=== PATIENT | male | born 1940 | race Caucasian/White ===

== ENCOUNTER → 2016-11-12 | Outpatient (CLI) | payer MEDICARE, BC ==
[~2016-11-12] MED LIST: COMBIVENT U/D3 ML; PRILOSEC20 MG; PULMICORT0.25 MG/2; SINGULAIR PO; THEO-DUR300 MG PO; ZANTAC150 MG
--- NOTE | ~2016-11-12 | CT57 ---
[facility]. [facility] A Service of [facility] RADIOLOGY TEXT RESULTS PATIENT: MOODY PRICE LOCATION: [facility] : 40 UNIT #: [id number] AGE: [address]: Brandan Belcher MD SEX: M ORDER DR: [id number] [address] [address] [id number] O MR#: [id number] Acc #: [id number] NAME: MOODY PRICE : 1940 SEX: M STUDY DATE/TIME: 11/12/2016 13:25 UNIT: SCT ROOM: STUDY DESCRIPTION: CT Chest Wo Cont Attending Physician: Brandan Belcher M.D. Referring Physician: Brandan Belcher M.D. Ordering Physician: Brandan Belcher M.D. Primary Care Physician: Primary Care Physician No MEDICAL IMAGING REPORT This report is preliminary unless electronic signature is present. EXAM Chest CT without contrast HISTORY Chronic emphysema. Previous abnormal chest CT demonstrating indeterminate lung nodules. Evaluate for growth of the nodules over time. COMPARISON 11/16/2015 TECHNIQUE Axial imaging was obtained through chest without contrast and evaluated at lung and mediastinal windows. This CT exam was performed with one or more of the following radiation dose reduction techniques: automatic exposure control, adjustment of mA and/or kV according to patient size, and iterative reconstruction. FINDINGS Chest images at mediastinal window show no enlarged mediastinal or hilar lymph nodes. There is a hiatal hernia and the esophagus is mildly distended and fluid-filled suggesting reflux. Mucosal thickening is seen in the mid portion of the esophagus. No discrete masses are noted. The possibility of esophagitis or Bee's esophagus should be considered. Chest images at lung window show emphysema. Peripheral interstitial fibrosis and pleural thickening is noted bilaterally. Benign pleural calcifications are seen bilaterally as well. There is a noncalcified right lower lobe nodule posteriorly. It measures 9.0 mm and this is unchanged from the previous scan. There is a noncalcified nodule along the diaphragm on the left. It is also unchanged in size, measuring 14.0 mm. No new infiltrates are seen and no new or enlarging lung masses are identified. [facility] A Service of [facility] & [facility] RADIOLOGY TEXT RESULTS PATIENT: MOODY PRICE LOCATION: [facility] : 40 UNIT #: [id number] AGE: [address]: Brandan Belcher MD SEX: M ORDER DR: IMPRESSION Severe emphysema with pleural nodularity and calcification. Stable bilateral lower lobe lung nodules. These nodules have now been followed for 2 years without any significant change in size and can be considered benign per Fleischner Society guidelines. No further CT followup is needed. Dictated by... Musa Pollack M.D. THIS IS AN ELECTRONICALLY VERIFIED REPORT Musa Pollack M.D. at 11/14/2016 7:04 AM KAREN/heavenly TD: 11/13/2016 15:59 JOB #: [id number] MEDICAL IMAGING REPORT Page 1 of 1
== END | disposition home or self-care (01) ==
LOC: SCT 13:00
DX: R91.8 Other nonspecific abnormal finding of lung field (principal); J44.9 Chronic obstructive pulmonary disease, unspecified; J47.9 Bronchiectasis, uncomplicated
CPT/HCPCS: 71250